=== PATIENT | male | born 1980 | race Caucasian/White ===

== ENCOUNTER 2017-05-02 21:13 | Emergency (ER) | payer BC ==
[2017-05-02] MEDS ORDERED: ACETAMINOPHEN TAB 500 MG TAB PO STA (21:48)
[2017-05-02] MEDS ORDERED: IBUPROFEN 800 MG TAB PO STA (21:48)
--- NOTE | 2017-05-02 22:14 | XR ---
EXAM: XR Chest, 2 Views CLINICAL HISTORY: Reason: Cough/fever TECHNIQUE: Frontal and lateral views of the chest. COMPARISON: No relevant prior studies available. FINDINGS: Lungs: Unremarkable. No consolidation. Pleural space: Unremarkable. No pneumothorax. Heart: Unremarkable. No cardiomegaly. Mediastinum: Unremarkable. Bones/joints: Unremarkable. IMPRESSION: Normal chest x-rays.
[2017-05-02] MEDS ORDERED: OSELTAMIVIR 75 MG CAP PO STA (22:19)
--- NOTE | 2017-05-02 22:21 | ED ---
Fever HPI - General Chief Complaint: Fever Stated Complaint: 103.9/Fever Time Seen by Provider: 05/02/17 21:42 Source: patient, RN notes reviewed Mode of arrival: ambulatory Limitations: no limitations - History of Present Illness Initial Comments: 36-year-old male present emergency Department chief complaint fever cough congestion body aches. Patient states that symptoms started 2 days ago. Patient states she's had no contacts with some her symptoms. Patient states that he has not taken any recent Tylenol Motrin. He did take some Motrin this morning. Patient denies chest pain or shortness of breath. He one episode of diarrhea denies any nausea vomiting. Denies any neck pain neck stiffness. - Related Data Home Medications Medication Instructions Recorded Confirmed Ciprofloxacin HCl [Cipro] 500 mg PO Q12HR 05/02/17 05/02/17 Ibuprofen [Motrin] 600 mg PO Q6HR PRN 05/02/17 05/02/17 Previous Rx's Medication Instructions Recorded Oseltamivir [Tamiflu] 75 mg PO Q12HR #10 cap 05/02/17 Allergies Allergy/AdvReac Type Severity Reaction Status Date / Time No Known Allergies Allergy Verified 05/02/17 21:49 Review of Systems ROS Statement: Those systems with pertinent positive or pertinent negative responses have been documented in the HPI. ROS Other: All systems not noted in ROS Statement are negative. Past Medical History Past Medical History: No Reported History History of Any Multi-Drug Resistant Organisms: None Reported Past Surgical History: No Surgical Hx Reported Past Psychological History: No Psychological Hx Reported Smoking Status: Never smoker Past Alcohol Use History: None Reported Past Drug Use History: None Reported General Exam Limitations: no limitations General appearance: alert, in no apparent distress Head exam: Present: atraumatic, normocephalic, normal inspection Eye exam: Present: normal appearance, PERRL, EOMI. Absent: scleral icterus, conjunctival injection, periorbital swelling ENT exam: Present: normal exam, normal oropharynx, mucous membranes moist, TM's normal bilaterally, normal external ear exam Neck exam: Present: normal inspection, full ROM. Absent: tenderness, meningismus, lymphadenopathy Respiratory exam: Present: normal lung sounds bilaterally. Absent: respiratory distress, wheezes, rales, rhonchi, stridor Cardiovascular Exam: Present: normal rhythm, tachycardia, normal heart sounds. Absent: systolic murmur, diastolic murmur, rubs, gallop, clicks GI/Abdominal exam: Present: soft, normal bowel sounds. Absent: distended, tenderness, guarding, rebound, rigid Neurological exam: Present: alert, oriented X3, CN II-XII intact Skin exam: Present: warm, dry, intact, normal color. Absent: rash Course Vital Signs 05/02/17 21:37 Temperature 102 F H Pulse Rate 109 H Respiratory 16 Rate Blood Pressure 116/70 O2 Sat by Pulse 97 Oximetry Medical Decision Making - Medical Decision Making 36-year-old male presents emergency Department chief complaint fever cough congestion. Patient chest x-ray reviewed no acute abdomen on a. Patient's influenza A is positive for influenza A. Patient started on Tamiflu. Return parameters were discussed. - Lab Data Lab Results 05/02/17 Range/Units 21:50 Influenza Type A RNA Detected H (Not Detectd) Influenza Type B (PCR) Not Detected (Not Detectd) Disposition Clinical Impression: Influenza A Disposition: HOME SELF-CARE Condition: Stable Instructions: Influenza (ED) Additional Instructions: Please return to the Emergency Department if symptoms worsen or any other concerns. Prescriptions: Oseltamivir [Tamiflu] 75 mg PO Q12HR #10 cap Referrals: Sulema Ruiz DO [Primary Care Provider] - 1-2 days
[2017-05-02 22:28] VITALS: BP 109/59; PULSE 70; RESP 18; TEMP 101.2
== END 2017-05-02 22:30 | disposition home or self-care (01) ==
LOC: EC 21:13
DX: J09.X2 Influenza due to identified novel influenza A virus with other respiratory manifestations (principal)
CPT/HCPCS: 71020; 87502; 99284

== ENCOUNTER → 2023-09-02 | Outpatient (CLI) | payer BC ==
--- NOTE | 2023-09-07 16:17 | MR ---
EXAMINATION TYPE: MR brain wo/w con DATE OF EXAM: 09/02/2023 8:47 AM CLINICAL INDICATION:Male, 43 years old with history of R55 SYNCOPE AND COLLAPSE; PHH, Syncope and col lapse, LOC. COMPARISON: TECHNIQUE: Multi planar, multi sequence imaging was performed through the brain including: T1, T2, In version recovery, susceptibility weighted imaging and gradient echo imaging and Diffusion weighted im aging. The patient was then given intravenous contrast and multi planar, T1 fat-saturation images wer e obtained. IV Contrast: 10 cc Gadavist FINDINGS: The mejias-white junctions, ventricular system, basal cisterns appear unremarkable. Diffusion-weighted imaging shows no evidence of restricted diffusion to suggest acute/subacute infarct. Intracranial ar terial flow voids are maintained. Midline structures show no abnormality. Mejias-white matter different iation is maintained.. The susceptibility weighted images do not reveal any evidence for micro-hemorr jcarlos. After administration of gadolinium, no abnormal enhancement is seen. The bone marrow signal is within normal limits. Paranasal sinuses and mastoid air cells: No significant paranasal sinus disease. Visualized orbits: Orbital contents are intact. No abnormal enhancement. IMPRESSION: 1. No evidence of intracranial mass, acute/subacute infarct, or abnormal enhancement.
== END | disposition home or self-care (01) ==
LOC: RADMRIMAIN 07:48
PROVIDERS: ATTEND Family Medicine
DX: R40.20 Unspecified coma (principal)
CPT/HCPCS: 70553; A9585

== ENCOUNTER → 2023-09-15 | Outpatient (CLI) | payer BC ==
--- NOTE | 2023-09-16 09:45 | US ---
EXAMINATION TYPE: US carotid duplex BILAT DATE OF EXAM: 09/15/2023 COMPARISON: NONE CLINICAL INDICATION: Male, 43 years old with history of R55 SYNCOPE AND COLLAPSE; syncope with collap se TECHNIQUE: Carotid duplex ultrasound examination. Indirect Doppler criteria was utilized. FINDINGS: EXAM MEASUREMENTS: RIGHT: Peak Systolic Velocity (PSV) cm/sec ----- Right CCA: 145.6 ----- Right ICA: 149.5 ----- Right ECA: 127.4 ICA/CCA ratio: 1.0 RIGHT: End Diastole cm/sec ----- Right CCA: 39.2 ----- Right ICA: 35.2 ----- Right ECA: 24.1 LEFT: Peak Systolic Velocity (PSV) cm/sec ----- Left CCA: 130.7 ----- Left ICA: 119.4 ----- Left ECA: 116.1 ICA/CCA ratio: 0.9 LEFT: End Diastole cm/sec ----- Left CCA: 37.0 ----- Left ICA: 35.4 ----- Left ECA: 20.8 VERTEBRALS (direction of flow): Right Vertebral: Antegrade Left Vertebral: Antegrade Rhythm: Normal CERAMIC SAW TENDER NOTES: Minimal plaque bilateral bifurcations. Generally increased velocities IMPRESSION: Elevated peak systolic velocities in the right common and internal carotid arteries but based on colo r and grayscale imaging, Doppler waveforms and ratios there is no hemodynamically significant stenosi s bilaterally. Criteria for Assigning % of Stenosis / Diameter reduction (Estimation based on the indirect measurements of the internal carotid artery velocities (ICA PSV). 1. Normal (no stenosis)=ICA PSV < 125 cm/s: ratio < 2.0: ICA EDV<40 cm/s. 2. Less than 50% stenosis=ICA PSV < 125 cm/s: ratio < 2.0: ICA EDV<40 cm/s. 3. 50 to 69% stenosis=ICA PSV of 125 to 230 cm/s: ration 2.0 ? 4.0: ICA EDV 40-100 cm/s. 4. Greater than 70% stenosis to near occlusion= ICA PSV > 230 cm/s: ratio > 4.0: ICA EDV > 100 cm/s. 5. Near occlusion= ICA PSV velocities may be low or undetectable: variable ratio and ICA EDV. 6. Total occlusion=unable to detect flow.
== END | disposition home or self-care (01) ==
LOC: RADUSWWP 14:04
PROVIDERS: ATTEND Family Medicine
DX: R55 Syncope and collapse (principal)
CPT/HCPCS: 93880